=== PATIENT | male | born 1950 | race Caucasian/White ===

== ENCOUNTER 2018-04-06 08:09 | Day surgery (SDC) | payer OTHER ==
--- OUTSIDE RECORDS SUMMARY | 2018-04-06 08:14 | XMS REPORT | Continuity of Care Document ---
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 Medications Medication Details Route Status Patient Ordering Order Source Instructions Provider Date [place] 5325 1 tab, PO, Q6H, Active [facility] 02/24[facility] oral tablet Pain, # 12 tab, [address] [place] [address] 0 Refill(s) [place] 5/325 1 tab, Route: Inactive [facility] 02/24[facility] oral tablet PO, Drug Form: 2014 Medical TAB, Dosing Center Weight 76.364, kg, Q6H, PRN Pain, Start date: 02/24/13 12:41:00, Duration: 30 day, Stop date: 03/26/13 12:40:00(Same as: [place] 325/5) Do not exceed 4gm/day of acetaminophen. diltiazem 300 300 mg=1 cap, Active [facility] 02/24[facility] [place] mg/24 hours PO, Before [facility] Medical oral capsule, Breakfast, # 30 [place] extended cap, 0 Refill(s) release Mononine 3,040 Route: IV, Drug No Longer [facility] 02/24[facility] unit + IV bag 1 form: INJ, Q12H, Active [facility] Medical ea Start date: Center 02/23/13 18:00:00, Stop date: 03/25/13 5:00:00(Same as: Mononine) naloxone 0.04 mg, 0.1 mL, Inactive [place] 02/23[facility] Route: IVP, Drug 2013 Medical form: INJ, Center Q2MIN, Dosing Weight 76.364, kg, PRN Narcotic Reversal, Start date: 02/23/13 9:30:00, Duration: 8 doses or times, Stop date: 02/24/13 0:00:00Same as Narcan flumazenil 0.2 mg, 2 mL, Inactive [place] 02/23[facility] Route: IVP, Drug 2013 Medical form: INJ, PRN, Center Dosing Weight 76.364, kg, PRN Benzodiazepine Reversal, Initial dose, Start date: 02/23/13 9:30:00, Duration: 1 day, Stop date: 02/24/13 9:29:00(Same as: Romazicon) hydromorphone 0.5 mg, Route: Inactive 02/23[facility] IVP, Q5Min, 2013 Medical Dosing Weight Center 76.364, kg, PRN Pain Score 7-10, Start date: 02/23/13 9:30:00, Duration: 4 doses or times, Stop date: Limited # of times promethazine 6.25 mg, 0.25 Inactive [place] 02/23[facility] mL, Route: IVPB, 2013 Medical Drug form: INJ, Center ONCE, Dosing Weight 76.364, kg, PRN Nausea & Vomiting, Start date: 02/23/13 9:30:00Do not give IV push. (Same as: Phenergan) ondansetron 4 mg, 2 mL, Inactive [place] 02/23[facility] Route: IVP, Drug 2013 Medical form: INJ, ONCE, Center Dosing Weight 76.364, kg, PRN Nausea & Vomiting, Start date: 02/23/13 9:30:00(Same as: Zofran) labetalol 10 mg, 2 mL, Inactive [place] 02/23[facility] Route: IVP, Drug 2013 Medical form: INJ, Center Q5Min, Dosing Weight 76.364, kg, PRN Elevated BP, Start date: 02/23/13 9:30:00, Duration: 5 doses or times, Stop date: 02/24/13 0:00:00 hydrALAZINE 10 mg, 0.5 mL, Inactive [place] 02/23[facility] Route: IVP, Drug 2013 Medical form: INJ, Center Q20Min, Dosing Weight 76.364, kg, PRN Elevated BP, Start date: 02/23/13 9:30:00, Duration: 2 doses or times, Stop date: 02/24/13 0:00:00(Same as: Apresoline) Push over 5 minutes Mononine 3,000 unit, Inactive Reynoso Briana Route: IVP, Drug 2013 Medical form: INJ, Q12H, Center Dosing Weight 76.364, kg, Start date: 02/23/13 9:00:00, Duration: 30 day, Stop date: 03/24/13 21:00:00 Mononine 7,775 Route: IV, Drug Inactive Edgardo Briana unit + IV bag 1 form: INJ, ONCE, 2013 Medical ea Start date: Center 02/23/13 6:30:00, Stop date: 02/23/13 6:30:00(Same as: Mononine) ondansetron 4 mg, 2 mL, Inactive Sari Briana Route: IVP, Drug 2013 Medical form: INJ, ONCE, Center Dosing Weight 76.364, kg, PRN Nausea & Vomiting, Start date: 02/22/13 17:29:00(Same as: Zofran) fentanyl 25 microgram, Inactive Sari Briana 0.5 mL, Route: 2013 Medical IVP, Drug form: Center INJ, Q5Min, Dosing Weight 76.364, kg, PRN Pain Score 4-6, Start date: 02/22/13 17:29:00, Duration: 4 doses or times, Stop date: 02/23/13 6:00:00(Same as: Sublimaze) Preservative free. flumazenil 0.2 mg, 2 mL, Inactive Jos éLuisa Briana Route: IVP, Drug 2013 Medical form: INJ, PRN, Center Dosing Weight 76.364, kg, PRN Benzodiazepine Reversal, Initial dose, Start date: 02/22/13 17:29:00, Stop date: 02/23/13 6:00:00(Same as: Romazicon) naloxone 0.04 mg, 0.1 mL, Inactive José Luisa Briana Route: IVP, Drug 2013 Medical form: INJ, Center Q2MIN, Dosing Weight 76.364, kg, PRN Narcotic Reversal, Start date: 02/22/13 17:29:00, Duration: 8 doses or times, Stop date: 02/23/13 6:00:00(Same as: Narcan) Mononine 7,875 Route: IV, Drug No Longer Reynoso [facility] unit + IV bag 1 form: INJ, Active 2013 Medical ea ONCALL, PRN Center Other -See Comment, Start date: 02/21/13 13:14:00, Stop date: 03/23/13 13:13:00prepare using 1125 unit vial x 7 vials (Same as: Mononine) CeleBREX 200 mg, 2 cap, No Longer Osuagwu [facility] Route: PO, Drug Active 2013 Medical form: CAP, Center Daily, Dosing Weight 76.364, kg, PRN Other -See Comment, Start date: 02/21/13 8:54:00, Duration: 30 day, Stop date: 03/23/13 8:53:00, joint painNSAID. Please check indication. Not for seizure. (Same As: CeleBREX ) Mononine 8,000 unit, Inactive [facility] Briana Route: IVP, Drug 2013 Medical form: INJ, Center ONCALL, Dosing Weight 76.364, kg, PRN, Start date: 02/21/13 8:15:00, Duration: 30 day, Stop date: 03/23/13 8:14:00, acute bleeding magnesium 2 gm, 50 mL, Inactive [facility] sulfate Route: IVPB, 2013 Medical Drug form: INJ, Center Q2H, Dosing Weight 76.364, kg, Total dose=4 gm, Start date: 02/21/13 8:00:00, Duration: 2 doses or times, Stop date: 02/21/13 10:00:00 potassium 40 mEq, 30 mL, Inactive [facility] 02/21[facility] [place] chloride 20 Route: PO, Drug 2013 Medical mEq/15 mL oral form: LIQ, ONCE, Center liquid Dosing Weight 76.364, kg, Start date: 02/21/13 7:21:00, Stop date: 02/21/13 7:21:00(Same as: Potassium Chloride) levothyroxine 50 microgram, 1 No Longer Keila [place] tab, Route: PO, Active 2013 Medical Drug form: TAB, Center Q630AM, Dosing Weight 76.364, kg, Start date: 02/21/13 6:30:00, Duration: 30 day, Stop date: 03/22/13 6:30:00Take 1 hour before or 2 hours after meal; Enteral feeds may interefere with the absorption of this medication.(Same as:Levothroid, Synthroid) Protonix 40 mg, 1 tab, No Longer Reynoso [place] Route: PO, Drug Active 2013 Medical form: ECTAB, Center Daily, Dosing Weight 76.364, kg, Start date: 02/20/13 9:00:00, Duration: 30 day, Stop date: 03/21/13 9:00:00Tablet should not be chewed or crushed. (Same as: Protonix) multivitamin 1 tab, Route: No Longer Reynoso [facility] PO, Drug Form: Active 2013 Medical TAB, Dosing Center Weight 76.364, kg, Daily, Start date: 02/20/13 9:00:00, Duration: 30 day, Stop date: 03/21/13 9:00:00(Same as:Thera) Take with food. Flomax 0.4 mg, 1 cap, No Longer Reynoso [place] Route: PO, Drug Active 2013 Medical form: CAP, After Center Breakfast, Dosing Weight 76.364, kg, Start date: 02/20/13 8:30:00, Duration: 30 day, Stop date: 03/21/13 8:30:00(Same As: Flomax) "Do Not Crush" levothyroxine 40 microgram, Inactive [facility] [place] 1.6 mL, Route: 2013 Medical PO, Drug form: Center SUSP, Q630AM, Dosing Weight 76.364, kg, Start date: 02/20/13 8:23:00, Duration: 30 day, Stop date: 03/22/13 6:30:00Enteral feeds may interefere with the absorption of this medication. Take 1 hour before or 2 hours after meal; Refrigerate - Shake Well (Same as: Synthroid) Compounded Product - formulation not commercially available diltiazem 300 mg, 1 cap, No Longer Reynoso [place] Route: PO, Drug Active 2013 Medical form: ERCAP, Center Before Breakfast, Dosing Weight 76.364, kg, Start date: 02/20/13 7:30:00, Duration: 30 day, Stop date: 03/21/13 7:30:00(Same as: Cardizem CD) Before meals. DO NOT CRUSH. levothyroxine 150 microgram, 1 Inactive [facility] [place] tab, Route: PO, 2013 Medical Drug form: TAB, Center Q630AM, Dosing Weight 76.364, kg, Start date: 02/20/13 6:30:00, Duration: 30 day, Stop date: 03/21/13 6:30:00Take 1 hour before or 2 hours after meal; Enteral feeds may interefere with the absorption of this medication. (Same as: Levothroid) Zosyn 3.375 gm, Route: No Longer Zwiener [facility] IVPB, Drug form: Active 2013 Medical PDR/INJ, ABXQ6H, Center Dosing Weight 76.364, kg, Start date: 02/20/13 2:30:00, Duration: 30 day, Stop date: 03/21/13 20:30:00(Same as: Zosyn) Dosing based on Piperacillin component acetaminophen 650 mg, 20.3 mL, No Longer Reynoso [facility] Route: PO, Drug Active 2013 Medical form: LIQ, Q4H, Center Dosing Weight 76.364, kg, PRN Pain 1-3/Temp > 100.4 F, Start date: 02/19/13 20:39:00, Duration: 30 day, Stop date: 03/21/13 20:38:00Max acetaminophen=40 00mg/day (4 gm/day). (Same as: Tylenol) Zosyn 3.375 gm, Route: Inactive [facility] IVPB, Drug form: 2013 Medical PDR/INJ, ABXQ8H, Center Dosing Weight 76.364, kg, CrCl >=20 ml/min infuse over 4 hours, Start date: 02/19/13 19:00:00, Duration: 30 day, Stop date: 03/21/13 11:00:00 normal saline 1,000 mL, Rate: No Longer Zwiener [place] 0.9% IV 1,000 100 ml/hr, Active 2013 Medical mL Infuse over: 10 Center hr, Route: IV, Dosing Weight 76.364 kg, Total Volume: 1,000, Start date: 02/19/13 18:18:00, Duration: 30 day, Stop date: 03/21/13 18:17:00 multivitamin 1 tab, PO, Active Reynoso [facility] Daily, 0 2013 Medical Refill(s) Center CeleBREX 200 mg 200 mg=1 cap, Active [facility] oral capsule PO, PRN, # 30 2013 Medical cap, 0 Refill(s) Center Flomax 0.4 mg, PO, Active Reynoso [facility] Daily, 0 2013 Medical Refill(s) Center levothyroxine =1 tab, PO, Active Reynoso [facility] Daily, 0 2013 Medical Refill(s) Center Protonix 40 mg, PO, Active Reynoso [facility] Daily, # 30 tab, 2014 Medical 0 Refill(s) Center Cardizem CD 360 360 mg=1 cap, No Longer [facility] mg/24 hours PO, Daily, # 30 Active 2013 Medical oral capsule, cap, 0 Refill(s) Center extended release Allergies, Adverse Reactions, Alerts Substance Category Reaction Severity Reaction Status Date Comments Source type Reported Medrol drug , Alt Hot Allergy [facility] allergy & Cold 4 [place] Immunizations Immunization Date Given Site Status Last Updated Comments Source Results Order Name Results Value Reference Date Interpretation Comments Source Range Bone length Bone length EXAM: LIMB LENGTH SCANOGRAM 1 VIEW 03/29 - [facility] scanogram scanogram /2013 - [place] DATA: PRE - JOINT REPLACEMENT FULL LENGTH LOWER LIMB ASSESSMENT Read by: Waylon Goodwin Dictated Date/time: 03/30/13 09:14 Electronically Signed by: Waylon Goodwin MD 03/30/13 09:16 FINAL REPORT DATE: Order Observation End Time: Mar 29, 2013 05:35:55 PM INDICATION: 715.16 Osteoarthrosis, Localized, Primary, Involving Lower Leg . Pain .. COMPARISON: None TECHNIQUE: Full length weight bearing AP radiographic examination of bilateral lower limbs , from hips to ankles. FINDINGS: Distance of weight bearing axis ( measured from center of femoral head to midpoint of tibial plafond) to the center of knee joint : Right knee=0.0 cms Left knee=0.0 cms. Genu angulation : RIGHT KNEE Varus=0 degrees. LEFT KNEE Varus=0 degrees Left total knee arthroplasty is present. 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 IMPRESSION: Full length imaging of the lower limbs with measurements as listed above. Knee 3 Knee 3 views EXAM: XR LEFT KNEE 3 VIEWS 03/29 - [facility] views /2013 - [place] This report was dictated by a Credit Reference Clerk/Fellow. I have personally reviewed the images as well as the Resident's interpretation and agree with the findings. DATE: 2013-03-29 17:35:00 Read by: Bib Chaparro Resident: Bib Chaparro Dictated Date/time: 03/30/13 09:35 Electronically Signed by: Waylon Goodwin MD 03/30/13 21:59 FINAL REPORT INDICATION: 715.16 Osteoarthrosis, Localized, Primary, Involving Lower Leg COMPARISON: left knee radiographs from 01/16/2010 TECHNIQUE: AP, lateral and sunrise radiographs of the left knee FINDINGS: The patient is status post left total knee arthroplasty and patellar resurfacing. The knee projects in satisfactory alignment on all views. There is minimal perihardware lucency around the tib ial stem without definite evidence of failure. No soft tissue abnormality is identified. IMPRESSION: Satisfactory alignment following left total knee arthroplasty. CHEMISTRY Phosphorus 2.4 mg/dL 2.5 - 4.5 02/24 LOW [facility] CHEMISTRY Magnesium Lvl 1.8 mg/dL 1.8 - 2.4 02/24 Normal [facility] CHEMISTRY Sodium Lvl 141 meq/L 135 - 145 02/24 Normal [facility] CHEMISTRY Creatinine 0.9 mg/dL 0.5 - 1.4 02/24 Normal [facility] CHEMISTRY BUN 10 mg/dL 7 - 22 02/24 Normal [facility] CHEMISTRY Glucose Lvl 106 mg/dL 70 - 99 02/24 [place] 5Interpretive Data: Adult reference range values reflect the clinical guidelines of the [place] [employer]. [facility] CHEMISTRY eGFR 90 02/24 2Result Comment: The eGFR is calculated using the CKD-EPI formula. In most young, healthy individuals the eGFR will be >90 mL/ min/1.73m2. The eGFR declines with age. An eGFR of 60-89 may be normal in [facility] mL/min/1. some populations, particularly the elderly, for whom the CKD-EPI formula has not been extensively validated. Use of the eGFR is not recommended in the following populations: [address] Individuals with unstable creatinine concentrations, including patients and those with serious co-morbid conditions. Patients with extremes in muscle mass or diet. The data above are obtained from the National Kidney Disease Education Program (NKDEP) which additionally recommends that when the eGFR is used in patients with extremes of body mass index for purposes of drug dosing, the eGFR should be multiplied by the estimated BMI. CHEMISTRY CO2 28 meq/L 24 - 32 02/24 Normal [facility] CHEMISTRY Chloride Lvl 105 meq/L 95 - 109 02/24 Normal [facility] CHEMISTRY Potassium Lvl 3.7 meq/L 3.5 - 5.1 02/24 Normal [facility] CHEMISTRY Calcium Lvl 8.6 mg/dL 8.5 - 10.5 02/24 Normal [facility] CHEMISTRY AGAP 11.7 meq/L 10.0 - 02/24 [facility] 20.0 [facility] HEMATOLOGY RBC X 10x6 4.63 M/CMM 4.70 - 02/24 [facility] 6.10 [facility] HEMATOLOGY Hgb 13.3 g/dL 14.0 - 02/24 [facility] 18.0 [facility] HEMATOLOGY Hct 39.6 % 42.0 - 02/24 [facility] 54.0 /2013 [facility] HEMATOLOGY WBC X 10x3 13.8 K/CMM 3.7 - 10.4 02/24 [facility] HEMATOLOGY MCHC 33.6 g/dL 32.0 - 02/24 [facility] 36.0 [facility] HEMATOLOGY MCH 28.7 pg 27.0 - 02/24 [facility] 31.0 [facility] HEMATOLOGY Platelet 171 K/CMM 133 - 450 02/24 Normal [facility] HEMATOLOGY RDW 13.1 % 11.5 - 01/15 [facility] 14.5 [facility] HEMATOLOGY MCV 85.5 fL 80.0 - 02/24 Normal [facility] 94.0 /2013 [facility] HEMATOLOGY MPV 9.0 fL 7.4 - 10.4 02/24 Normal [facility] HEMATOLOGY Segs-Bands # 11.7 K/CMM 1.5 - 8.1 02/24 [place] [facility] HEMATOLOGY Eosinophils 0.2 % 0.0 - 4.0 02/24 Normal [facility] HEMATOLOGY Basophils 0.2 % 0.0 - 1.0 02/24 Normal [facility] HEMATOLOGY Monocytes # 1.0 K/CMM 0.0 - 0.8 02/24 [place] [facility] HEMATOLOGY Lymphocytes # 1.1 K/CMM 1.0 - 5.5 02/24 Normal [facility] HEMATOLOGY Lymphocytes 8.2 % 20.0 - 02/24 LOW [place] 40.0 [facility] HEMATOLOGY Segs 84.4 % 45.0 - 02/24 [facility] 75.0 [facility] HEMATOLOGY Monocytes 7.0 % 2.0 - 12.0 02/24 Normal [facility] CHEMISTRY A/G Ratio 1.0 0.7 - 1.6 02/23 Normal [facility] CHEMISTRY AGAP 15.5 meq/L 10.0 - 02/23 Normal [facility] 20.0 [facility] CHEMISTRY B/C Ratio 13 6 - 25 02/23 Normal [facility] CHEMISTRY Globulin 3.4 g/dL 2.0 - 4.0 02/23 Normal [facility] CHEMISTRY eGFR 79 02/23 3Result Comment: The eGFR is calculated using the CKD-EPI formula. In most young, healthy individuals the eGFR will be >90 mL/ min/1.73m2. The eGFR declines with age. An eGFR of 60-89 may be normal in [facility] mL/min/1. some populations, particularly the elderly, for whom the CKD-EPI formula has not been extensively validated. Use of the eGFR is not recommended in the following populations: Medical [facility] Individuals with unstable creatinine concentrations, including patients and those with serious co-morbid conditions. Patients with extremes in muscle mass or diet. The data above are obtained from the National Kidney Disease Education Program (NKDEP) which additionally recommends that when the eGFR is used in patients with extremes of body mass index for purposes of drug dosing, the eGFR should be multiplied by the estimated BMI. CHEMISTRY Total Protein 6.7 g/dL 6.4 - 8.4 02/23 Normal [facility] CHEMISTRY ASPARTATE 161 unit/L 0 - 37 02/23 [facility] CHEMISTRY Chloride Lvl 106 meq/L 95 - 109 02/23 Normal Medical [facility] CHEMISTRY CO2 23 meq/L 24 - 32 02/23 [facility] CHEMISTRY Calcium Lvl 8.5 mg/dL 8.5 - 10.5 02/23 Normal [facility] CHEMISTRY Bili Total 1.5 mg/dL 0.2 - 1.3 02/23 [facility] CHEMISTRY Alk Phos 119 unit/L 39 - 136 02/23 Normal [facility] CHEMISTRY Creatinine 1.0 mg/dL 0.5 - 1.4 02/23 Normal [facility] CHEMISTRY Sodium Lvl 141 meq/L 135 - 145 02/23 Normal Medical Center CHEMISTRY Potassium Lvl 3.5 meq/L 3.5 - 5.1 02/23 Normal [facility] Center CHEMISTRY BUN 13 mg/dL 7 - 22 02/23 Normal [facility] Center CHEMISTRY Glucose Lvl 114 mg/dL 70 - 99 02/23 [place] 6Interpretive Data: Adult reference range values reflect the clinical guidelines of the [place] [employer]. Medical Center CHEMISTRY Albumin Lvl 3.3 g/dL 3.5 - 5.0 02/23 LOW [facility] CHEMISTRY ALANINE 240 unit/L 0 - 65 02/23 [facility] AMINOTRANSFER [facility] Center CHEMISTRY Magnesium Lvl 1.8 mg/dL 1.8 - 2.4 02/23 Normal [facility] Center CHEMISTRY Phosphorus 3.2 mg/dL 2.5 - 4.5 02/23 Normal [facility] HEMATOLOGY MCV 85.3 fL 80.0 - 02/23 [facility] 94.0 [facility] HEMATOLOGY RDW 13.5 % 11.5 - 02/23 [facility] 14.5 Medical [place] HEMATOLOGY RBC X 10x6 4.54 M/CMM 4.70 - 02/23 [facility] 6.10 [facility] HEMATOLOGY MCHC 34.8 g/dL 32.0 - 02/23 Normal [facility] 36.0 /2013 [facility] HEMATOLOGY Hct 38.7 % 42.0 - 02/23 [facility] 54.0 /2013 [facility] HEMATOLOGY MCH 29.7 pg 27.0 - 02/23 Normal [facility] 31.0 /2013 [facility] HEMATOLOGY Hgb 13.5 g/dL 14.0 - 02/23 LOW [facility] 18.0 [facility] HEMATOLOGY Platelet 188 K/CMM 133 - 450 02/23 Normal [facility] HEMATOLOGY MPV 8.9 fL 7.4 - 10.4 02/23 Normal [facility] HEMATOLOGY WBC X 10x3 8.1 K/CMM 3.7 - 10.4 02/23 Normal [facility] HEMATOLOGY Lymphocytes # 1.2 K/CMM 1.0 - 5.5 02/23 Normal [facility] HEMATOLOGY Monocytes # 0.8 K/CMM 0.0 - 0.8 02/23 Normal [facility] HEMATOLOGY Segs-Bands # 5.9 K/CMM 1.5 - 8.1 02/23 Normal [facility] HEMATOLOGY Eosinophils 1.5 % 0.0 - 4.0 02/23 Normal [facility] HEMATOLOGY Basophils 0.4 % 0.0 - 1.0 02/23 Normal [facility] HEMATOLOGY Eosinophils # 0.1 K/CMM 0.0 - 0.5 02/23 Normal [facility] HEMATOLOGY Lymphocytes 14.8 % 20.0 - 02/23 LOW [facility] 40.0 [facility] HEMATOLOGY Monocytes 9.6 % 2.0 - 12.0 02/23 Normal [facility] HEMATOLOGY Segs 73.7 % 45.0 - 02/23 [facility] 75.0 [facility] Endoscopic Endoscopic EXAM: Endoscopic Retro Pancreatogram ERCP 02/22 - [facility] Retro /2013 - [facility] Pancreatogr Pancreatogram Center am ERCP ERCP DATE: Feb 22, 2013 04:17:00 PM. Read by: Vikki Castro Dictated Date/time: 02/23/13 09:01 Electronically Signed by: Vikki Castro MD 02/23/13 09:07 FINAL REPORT CLINICAL INDICATION: stones in the bile duct COMPARISON: Right upper quadrant ultrasound dated 02/19/2013 FINDINGS: On the c.o.d. clerk radiograph there is an elongated calcific density along the medial aspect the expected location of common bile duct. On the subsequent ERCP images, there has been opacification of the extra hepatic and intrahepatic bile ducts obscuring the visualization of this calcific density. There is mild to moderate extrahepatic and central intrahepatic biliary dilation. As per the ERCP note, a sphinc terotomy has been performed and stones were removed from the bile duct with a balloon catheter. On the final radiograph subsequent removal of the stones and endoscope, residual contrast in the biliary system does not demonstrate significant dilation. As per the ERCP note, fluoroscopy time is 6.2 minutes. IMPRESSION: 1. Fluoroscopic guidance provided for ERCP. 2. Mild to moderate extrahepatic and central intrahepatic biliary ductal dilation. Calcific density seen on the c.o.d. clerk radiograph is not appreciated on the subsequent images. As per the ERCP note, sphinc terotomy has been performed and calculi were removed from the bile duct with a balloon catheter. CHEMISTRY eGFR 79 02/22 4Result Comment: The eGFR is calculated using the CKD-EPI formula. In most young, healthy individuals the eGFR will be >90 mL/ min/1.73m2. The eGFR declines with age. An eGFR of 60-89 may be normal in [facility] mL/min/1. some populations, particularly the elderly, for whom the CKD-EPI formula has not been extensively validated. Use of the eGFR is not recommended in the following populations: Medical [facility] Individuals with unstable creatinine concentrations, including patients and those with serious co-morbid conditions. Patients with extremes in muscle mass or diet. The data above are obtained from the National Kidney Disease Education Program (NKDEP) which additionally recommends that when the eGFR is used in patients with extremes of body mass index for purposes of drug dosing, the eGFR should be multiplied by the estimated BMI. CHEMISTRY CO2 24 meq/L 24 - 32 02/22 Normal [facility] CHEMISTRY Calcium Lvl 8.5 mg/dL 8.5 - 10.5 02/22 Normal [facility] CHEMISTRY Chloride Lvl 108 meq/L 95 - 109 02/22 Normal [facility] CHEMISTRY Bili Total 1.6 mg/dL 0.2 - 1.3 02/22 [place] [facility] CHEMISTRY ASPARTATE 71 unit/L 0 - 37 02/22 [place] Medical [place] CHEMISTRY Total Protein 6.7 g/dL 6.4 - 8.4 02/22 Normal [facility] CHEMISTRY Albumin Lvl 3.4 g/dL 3.5 - 5.0 02/22 LOW [facility] CHEMISTRY ALANINE 142 unit/L 0 - 65 02/22 HI AMINO [facility] Center CHEMISTRY Glucose Lvl 91 mg/dL 70 - 99 02/22 Normal 7Interpretive Data: Adult reference range values reflect the clinical guidelines of the [place] [employer]. [facility] CHEMISTRY Alk Phos 118 unit/L 39 - 136 02/22 Normal [facility] CHEMISTRY BUN 15 mg/dL 7 - 22 02/22 Normal [facility] CHEMISTRY Creatinine 1.0 mg/dL 0.5 - 1.4 02/22 Normal [facility] CHEMISTRY Potassium Lvl 3.7 meq/L 3.5 - 5.1 02/22 Normal [facility] CHEMISTRY Sodium Lvl 142 meq/L 135 - 145 02/22 Normal [facility] CHEMISTRY AGAP 13.7 meq/L 10.0 - 02/22 Normal 20.0 [facility] CHEMISTRY B/C Ratio 15 6 - 25 02/22 Normal [facility] CHEMISTRY Globulin 3.3 g/dL 2.0 - 4.0 02/22 Normal [facility] CHEMISTRY A/G Ratio 1.0 0.7 - 1.6 02/22 Normal [facility] CHEMISTRY Magnesium Lvl 2.0 mg/dL 1.8 - 2.4 02/22 Normal [facility] CHEMISTRY Phosphorus 3.5 mg/dL 2.5 - 4.5 02/22 Normal [facility] HEMATOLOGY Eosinophils # 0.4 K/CMM 0.0 - 0.5 02/22 Normal [facility] HEMATOLOGY Monocytes # 0.5 K/CMM 0.0 - 0.8 02/22 Normal [facility] HEMATOLOGY Lymphocytes # 1.1 K/CMM 1.0 - 5.5 02/22 Normal [facility] HEMATOLOGY Segs-Bands # 3.0 K/CMM 1.5 - 8.1 02/22 Normal [facility] Center HEMATOLOGY Monocytes 10.7 % 2.0 - 12.0 02/22 Normal [facility] HEMATOLOGY Segs 59.4 % 45.0 - 02/22 Normal [place] 75.0 /2013 [facility] HEMATOLOGY Eosinophils 7.6 % 0.0 - 4.0 02/22 [facility] HEMATOLOGY Lymphocytes 21.7 % 20.0 - 02/22 Normal [place] 40.0 Medical Center HEMATOLOGY Basophils 0.6 % 0.0 - 1.0 02/22 Normal [facility] HEMATOLOGY Hgb 13.8 g/dL 14.0 - 02/22 LOW [place] 18.0 /2013 [facility] Center HEMATOLOGY RBC X 10x6 4.79 M/CMM 4.70 - 02/22 Normal [facility] 6.10 Medical [place] HEMATOLOGY Hct 41.2 % 42.0 - 02/22 LOW [place] 54.0 /2013 Medical Center HEMATOLOGY WBC X 10x3 5.0 K/CMM 3.7 - 10.4 02/22 Normal [facility] HEMATOLOGY Platelet 168 K/CMM 133 - 450 02/22 Normal [facility] Center HEMATOLOGY RDW 13.4 % 11.5 - 02/22 Normal [facility] 14.5 Medical Center HEMATOLOGY MPV 9.1 fL 7.4 - 10.4 02/22 Normal [facility] HEMATOLOGY MCH 28.8 pg 27.0 - 02/22 Normal [facility] 31.0 Medical Center HEMATOLOGY MCV 85.9 fL 80.0 - 02/22 Normal [facility] 94.0 Medical Center HEMATOLOGY MCHC 33.5 g/dL 32.0 - 02/22 Normal [facility] 36.0 [facility] Center CHEMISTRY Total Protein 6.3 g/dL 6.4 - 8.4 02/21 LOW [facility] CHEMISTRY Bili Total 1.8 mg/dL 0.2 - 1.3 02/21 [facility] CHEMISTRY A/G Ratio 1.0 0.7 - 1.6 02/21 Normal [facility] CHEMISTRY ASPARTATE 56 unit/L 0 - 37 02/21 [facility] Center CHEMISTRY B/C Ratio 16 6 - 25 02/21 Normal [facility] Center CHEMISTRY Globulin 3.2 g/dL 2.0 - 4.0 02/21 Normal [facility] Center CHEMISTRY Albumin Lvl 3.1 g/dL 3.5 - 5.0 02/21 LOW [facility] CHEMISTRY Alk Phos 119 unit/L 39 - 136 02/21 Normal [facility] CHEMISTRY ALANINE 135 unit/L 0 - 65 02/21 [facility] AMINOTRANSFER Medical [facility] Center HEMATOLOGY Eosinophils # 0.3 K/CMM 0.0 - 0.5 02/21 Normal [facility] HEMATOLOGY Plt Morph Normal 02/20 Normal [facility] (02/20/2013 05:17:00) Center HEMATOLOGY RBC Morph Normal 02/20 Normal [facility] (02/20/2013 05:17:00) Center URINALYSIS UA Leuk Est Negative Negative 02/19 Normal [facility] (02/19/2013 11:45:20) [place] URINALYSIS UA Turbidity Clear Clear 02/19 Normal [facility] (02/19/2013 11:45:20) [place] URINALYSIS UA pH 6.5 5.0 - 8.0 02/19 Normal [facility] URINALYSIS UA Spec Grav 1.010 <=1.030 02/19 Normal [facility] URINALYSIS UA Protein 30 mg/dL Negative 02/19 ABN [facility] URINALYSIS UA Glucose Negative Negative 02/19 Normal [facility] (02/19/2013 11:45:20) [place] URINALYSIS UA Blood Negative Negative 02/19 [facility] (02/19/2013 11:45:20) [place] URINALYSIS UA 4.0 EU/dL 0.1 - 1.0 02/19 [facility] Urobilinogen /2013 [facility] URINALYSIS UA Nitrite Negative Negative 02/19 Normal [facility] (02/19/2013 11:45:20) Center URINALYSIS UA Ketones Trace Negative 02/19 ABN Medical *ABN* [place] (02/19/2013 11:45:20) URINALYSIS UA Bili Moderate 1 Negative 02/19 [facility] 1Result Comment: Interpret positive bilirubin results with caution. Confirmatory testing not possible due to the unavailability of reagent. Correlation with Medical *ABN* serum chemistry results recommended. Center (02/19/2013 11:45:20) URINALYSIS UA Color Yellow Yellow 02/19 Medical *NA* Center (02/19/2013 11:45:20) URINALYSIS UA Bacteria None Seen None Seen 02/19 Normal [facility] (02/19/2013 11:45:20) [place] URINALYSIS UA RBC None Seen 0 - 2 02/19 Normal [facility] (02/19/2013 11:45:20) [place] URINALYSIS Micro? Performed 02/19 Normal [facility] (02/19/2013 11:45:20) [place] URINALYSIS UA WBC None Seen None Seen 02/19 Normal [facility] (02/19/2013 11:45:20) [place] URINALYSIS UA Sq Epi Occasional Few 02/19 Normal / [facility] BLOOD BANK Antibody Scrn Negative 02/19 Normal [facility] (02/19/2013 11:45:00) [place] BLOOD BANK ABO/Rh B POS 02/19 [facility] CHEMISTRY Lipase Lvl 202 unit/L 73 - 393 02/19 Normal [facility] HEMATOLOGY Basophils # 0.1 K/CMM 0.0 - 0.2 02/19 Normal [facility] HEMATOLOGY Large Plt Slight None Seen 02/19 ABN [facility] *ABN* [place] (02/19/2013 11:45:00) HEMATOLOGY RBC Morph Normal 02/19 Normal [facility] (02/19/2013 11:45:00) [place] Abdomen RUQ Abdomen RUQ EXAM: US ABDOMEN LIMITED 02/19 - [facility] US - [facility] This report was dictated by a Credit Reference Clerk/Fellow. I have personally reviewed the images as Center well as the Resident's interpretation and agree with the findings. DATE: 02/19/2013 at 1159. Read by: Dulce Hemphill Resident: Dulce Hemphill Dictated Date/time: 02/19/13 13:26 Electronically Signed by: Francy James MD 02/19/13 16:35 FINAL REPORT INDICATION: Right upper quadrant pain COMPARISON: Liver ultrasound 09/04/2007. TECHNIQUE: Multiplanar grayscale and color Doppler ultrasound images of the RUQ abdomen were obtained. FINDINGS: Liver demonstrates coarse echogenicity without masses. Right hepatic lobe measures 16 cm at the midclavicular line. Main portal vein is 12 mm in diameter with hepatopetal flow. The gallbladder contains a single nonmobile calculus within the fundus as well as a small amount of sludge. Gallbladder wall thickness is 2.4 mm. No sonographic Gordon's sign or pericholecystic fluid. Visualized portions of the intrahepatic biliary tree are of normal caliber. Common duct is mildly enlarged, measuring 7.5 liters in diameter at the head of the pancreas and up to 12 mm at the hilum. Pancreas is unremarkable where visualized. The spleen measures 10.7 x 3.3 x 3.8 cm. Right kidney is normal in size, shape, and echotexture without masses or hydronephrosis. Right kidney measures 13.6 x 4.9 x 6.5 cm. Abdominal aorta is of normal caliber. Inferior vena cava unremarkable where visualized. No free fluid identified. IMPRESSION: 1. Dilated common bile duct, measuring approximately 7.5 mm at the head of the pancreas and up to 12 mm at the hilum. Recommend correlation with LFTs and possible MRCP for further evaluation. 2. Mildly heterogeneous echogenicity of the liver, which is otherwise unremarkable. 3. Nonmobile calculus within the gallbladder fundus without evidence of cholecystitis. Vital Signs Vital Sign Value Date Comments Source Diastolic (mm Hg) 77 02/24/2013 [facility] Systolic (mm Hg) 162 02/24/2013 [facility] Respitory Rate 16 02/24/2013 [facility] Heart Rate 63 02/24/2013 [facility] Temperature Oral (F) 98.8 F 02/24/2013 [facility] Diastolic (mm Hg) 82 02/24/2013 [facility] Systolic (mm Hg) 155 02/24/2013 [facility] Temperature Oral (F) 98.1 F 02/24/2013 [facility] Heart Rate 66 02/24/2013 [facility] Respitory Rate 16 02/24/2013 [facility] Respitory Rate 16 02/24/2013 [facility] Heart Rate 60 02/24/2013 [facility] Temperature Oral (F) 98.4 F 02/24/2013 [facility] Systolic (mm Hg) 122 02/24/2013 [facility] Diastolic (mm Hg) 64 02/24/2013 [facility] Weight 76.364 02/20/2013 [facility] Height 182.88 cm 02/20/2013 [facility] Weight 76.364 02/19/2013 [facility] Encounters Location Location Encounter Encounter Reason Attending ADM DC Status Source Details Type Number For Provider Date Date Visit [facility] Inpatient [id number] DELFINO HALLMAN 02/19 02/24 Active [facility] /2013 [facility] OD [id number] 715.16 MONA 03/29 03/29 Active [facility] /2013 [place] PRIM OSTEOA Procedures Procedure Code Date Perfomer Comments Source Knee replacement [id number] [facility]
--- OUTSIDE RECORDS SUMMARY | 2018-04-06 08:15 | XMS REPORT | CCD ---
:1950 Author Organization [facility] Care Team Providers Name Role Phone Enrique Colvin [place] Consulting Provider Allergies, Adverse Reactions, Alerts Substance Reaction Status Medrol Dizziness Active Alt Hot & Cold Problem List Condition Effective Dates Status Hemophilia Resolved Hepatitis C Resolved HTN - Hypertension Resolved Pain Active Medications Medication Instructions Start Date End Date Status naloxone 0.04 mg, 0.1 mL, Route: 02/23/2013 02/23/2013 Discontinued IVP, Drug form: INJ, Q2MIN, Dosing Weight 76.364, kg, PRN Narcotic Reversal, Start date: 02/23/13 9:30:00, Duration: 8 doses or times, Stop date: 02/24/13 0:00:00Same as Narcan flumazenil 0.2 mg, 2 mL, Route: IVP, 02/23/2013 02/23/2013 Discontinued Drug form: INJ, PRN, Dosing Weight 76.364, kg, PRN Benzodiazepine Reversal, Initial dose, Start date: 02/23/13 9:30:00, Duration: 1 day, Stop date: 02/24/13 9:29:00(Same as: Romazicon) hydromorphone 0.5 mg, Route: IVP, 02/23/2013 02/23/2013 Completed Q5Min, Dosing Weight 76.364, kg, PRN Pain Score 7-10, Start date: 02/23/13 9:30:00, Duration: 4 doses or times, Stop date: Limited # of times promethazine 6.25 mg, 0.25 mL, Route: 02/23/2013 02/23/2013 Discontinued IVPB, Drug form: INJ, ONCE, Dosing Weight 76.364, kg, PRN Nausea & Vomiting, Start date: 02/23/13 9:30:00Do not give IV push. (Same as: Phenergan) ondansetron 4 mg, 2 mL, Route: IVP, 02/23/2013 02/23/2013 Discontinued Drug form: INJ, ONCE, Dosing Weight 76.364, kg, PRN Nausea & Vomiting, Start date: 02/23/13 9:30:00(Same as: Zofran) labetalol 10 mg, 2 mL, Route: IVP, 02/23/2013 02/23/2013 Discontinued Drug form: INJ, Q5Min, Dosing Weight 76.364, kg, PRN Elevated BP, Start date: 02/23/13 9:30:00, Duration: 5 doses or times, Stop date: 02/24/13 0:00:00 hydrALAZINE 10 mg, 0.5 mL, Route: 02/23/2013 02/23/2013 Discontinued IVP, Drug form: INJ, Q20Min, Dosing Weight 76.364, kg, PRN Elevated BP, Start date: 02/23/13 9:30:00, Duration: 2 doses or times, Stop date: 02/24/13 0:00:00(Same as: Apresoline)Push over 5 minutes Flomax 0.4 mg, 1 cap, Route: PO, 02/20/2013 02/24/2013 Discontinued Drug form: CAP, After Breakfast, Dosing Weight 76.364, kg, Start date: 02/20/13 8:30:00, Duration: 30 day, Stop date: 03/21/13 8:30:00(Same As: Flomax) "Do Not Crush" Protonix 40 mg, 1 tab, Route: PO, 02/20/2013 02/24/2013 Discontinued Drug form: ECTAB, Daily, Dosing Weight 76.364, kg, Start date: 02/20/13 9:00:00, Duration: 30 day, Stop date: 03/21/13 9:00:00Tablet should not be chewed or crushed.(Same as: Protonix) multivitamin 1 tab, Route: PO, Drug 02/20/2013 02/24/2013 Discontinued Form: TAB, Dosing Weight 76.364, kg, Daily, Start date: 02/20/13 9:00:00, Duration: 30 day, Stop date: 03/21/13 9:00:00(Same as:Thera) Take with food. levothyroxine =1 tab, PO, Daily, 0 02/19/2013 Ordered Refill(s) Protonix 40 mg, PO, Daily, # 30 02/19/2013 03/21/2013 Ordered tab, 0 Refill(s) Canby 5/325 oral tablet 1 tab, PO, Q6H, Pain, # 02/24/2013 Ordered 12 tab, 0 Refill(s) Cardizem CD 360 mg/24 360 mg=1 cap, PO, Daily, 02/19/2013 02/24/2013 Discontinued hours oral capsule, # 30 cap, 0 Refill(s) extended release Canby 5/325 oral tablet 1 tab, Route: PO, Drug 02/24/2013 02/24/2013 Discontinued Form: TAB, Dosing Weight 76.364, kg, Q6H, PRN Pain, Start date: 02/24/13 12:41:00, Duration: 30 day, Stop date: 03/26/13 12:40:00(Same as: Canby 325/5) Do not exceed 4gm/day of acetaminophen. Zosyn 3.375 gm, Route: IVPB, 02/19/2013 02/19/2013 Discontinued Drug form: PDR/INJ, ABXQ8H, Dosing Weight 76.364, kg, CrCl >=20 ml/min infuse over 4 hours, Start date: 02/19/13 19:00:00, Duration: 30 day, Stop date: 03/21/13 11:00:00 Mononine 8,000 unit, Route: IVP, 02/21/2013 02/21/2013 Deleted Drug form: INJ, ONCALL, Dosing Weight 76.364, kg, PRN, Start date: 02/21/13 8:15:00, Duration: 30 day, Stop date: 03/23/13 8:14:00, acute bleeding Mononine 3,040 unit + IV Route: IV, Drug form: 02/23/2013 02/24/2013 Discontinued bag 1 ea INJ, Q12H, Start date: 02/23/13 18:00:00, Stop date: 03/25/13 5:00:00(Same as: Mononine) levothyroxine 150 microgram, 1 tab, 02/20/2013 02/20/2013 Discontinued Route: PO, Drug form: TAB, Q630AM, Dosing Weight 76.364, kg, Start date: 02/20/13 6:30:00, Duration: 30 day, Stop date: 03/21/13 6:30:00Take 1 hour before or 2 hours after meal; Enteral feeds may interefere with the absorption of this medication. (Same as: Levothroid) diltiazem 300 mg, 1 cap, Route: PO, 02/20/2013 02/24/2013 Discontinued Drug form: ERCAP, Before Breakfast, Dosing Weight 76.364, kg, Start date: 02/20/13 7:30:00, Duration: 30 day, Stop date: 03/21/13 7:30:00(Same as: Cardizem CD) Before meals. DO NOT CRUSH. ondansetron 4 mg, 2 mL, Route: IVP, 02/22/2013 02/22/2013 Discontinued Drug form: INJ, ONCE, Dosing Weight 76.364, kg, PRN Nausea & Vomiting, Start date: 02/22/13 17:29:00(Same as: Zofran) fentanyl 25 microgram, 0.5 mL, 02/22/2013 02/22/2013 Discontinued Route: IVP, Drug form: INJ, Q5Min, Dosing Weight 76.364, kg, PRN Pain Score 4-6, Start date: 02/22/13 17:29:00, Duration: 4 doses or times, Stop date: 02/23/13 6:00:00(Same as: Sublimaze) Preservative free. flumazenil 0.2 mg, 2 mL, Route: IVP, 02/22/2013 02/22/2013 Discontinued Drug form: INJ, PRN, Dosing Weight 76.364, kg, PRN Benzodiazepine Reversal, Initial dose, Start date: 02/22/13 17:29:00, Stop date: 02/23/13 6:00:00(Same as: Romazicon) naloxone 0.04 mg, 0.1 mL, Route: 02/22/2013 02/22/2013 Discontinued IVP, Drug form: INJ, Q2MIN, Dosing Weight 76.364, kg, PRN Narcotic Reversal, Start date: 02/22/13 17:29:00, Duration: 8 doses or times, Stop date: 02/23/13 6:00:00(Same as: Narcan) levothyroxine 50 microgram, 1 tab, 02/21/2013 02/24/2013 Discontinued Route: PO, Drug form: TAB, Q630AM, Dosing Weight 76.364, kg, Start date: 02/21/13 6:30:00, Duration: 30 day, Stop date: 03/22/13 6:30:00Take 1 hour before or 2 hours after meal; Enteral feeds may interefere with the absorption of this medication.(Same as:Levothroid, Synthroid) Mononine 7,875 unit + IV Route: IV, Drug form: 02/21/2013 02/23/2013 Discontinued bag 1 ea INJ, ONCALL, PRN Other -See Comment, Start date: 02/21/13 13:14:00, Stop date: 03/23/13 13:13:00prepare using 1125 unit vial x 7 vials(Same as: Mononine) diltiazem 300 mg/24 hours 300 mg=1 cap, PO, Before 02/24/2013 Ordered oral capsule, extended Breakfast, # 30 cap, 0 release Refill(s) Mononine 7,775 unit + IV Route: IV, Drug form: 02/23/2013 02/23/2013 Completed bag 1 ea INJ, ONCE, Start date: 02/23/13 6:30:00, Stop date: 02/23/13 6:30:00(Same as: Mononine) Mononine 3,000 unit, Route: IVP, 02/23/2013 02/23/2013 Deleted Drug form: INJ, Q12H, Dosing Weight 76.364, kg, Start date: 02/23/13 9:00:00, Duration: 30 day, Stop date: 03/24/13 21:00:00 normal saline 0.9% IV 1,000 mL, Rate: 100 02/19/2013 02/24/2013 Discontinued 1,000 mL ml/hr, Infuse over: 10 hr, Route: IV, Dosing Weight 76.364 kg, Total Volume: 1,000, Start date: 02/19/13 18:18:00, Duration: 30 day, Stop date: 03/21/13 18:17:00 Zosyn 3.375 gm, Route: IVPB, 02/19/2013 02/19/2013 Discontinued Drug form: PDR/INJ, ABXQ6H, Dosing Weight 76.364, kg, Start date: 02/19/13 19:00:00, Duration: 30 day, Stop date: 03/21/13 13:00:00(Same as: Zosyn) Dosing based on Piperacillin component Zosyn 3.375 gm, Route: IVPB, 02/20/2013 02/24/2013 Discontinued Drug form: PDR/INJ, ABXQ6H, Dosing Weight 76.364, kg, Start date: 02/20/13 2:30:00, Duration: 30 day, Stop date: 03/21/13 20:30:00(Same as: Zosyn) Dosing based on Piperacillin component potassium chloride 20 40 mEq, 30 mL, Route: PO, 02/21/2013 02/21/2013 Completed mEq/15 mL oral liquid Drug form: LIQ, ONCE, Dosing Weight 76.364, kg, Start date: 02/21/13 7:21:00, Stop date: 02/21/13 7:21:00(Same as: Potassium Chloride) levothyroxine 40 microgram, 1.6 mL, 02/20/2013 02/20/2013 Discontinued Route: PO, Drug form: SUSP, Q630AM, Dosing Weight 76.364, kg, Start date: 02/20/13 8:23:00, Duration: 30 day, Stop date: 03/22/13 6:30:00Enteral feeds may interefere with the absorption of this medication. Take 1 hour before or 2 hours after meal; Refrigerate - Shake Well (Same as: Synthroid) Compounded Product - formulation not commercially available multivitamin 1 tab, PO, Daily, 0 02/19/2013 Ordered Refill(s) CeleBREX 200 mg oral 200 mg=1 cap, PO, PRN, # 02/19/2013 Ordered capsule 30 cap, 0 Refill(s) magnesium sulfate 2 gm, 50 mL, Route: IVPB, 02/21/2013 02/21/2013 Completed Drug form: INJ, Q2H, Dosing Weight 76.364, kg, Total dose=4 gm, Start date: 02/21/13 8:00:00, Duration: 2 doses or times, Stop date: 02/21/13 10:00:00 acetaminophen 650 mg, 20.3 mL, Route: 02/19/2013 02/24/2013 Discontinued PO, Drug form: LIQ, Q4H, Dosing Weight 76.364, kg, PRN Pain 1-3/Temp > 100.4 F, Start date: 02/19/13 20:39:00, Duration: 30 day, Stop date: 03/21/13 20:38:00Max snlfacrwfkuys=[id number]/day (4 gm/day). (Same as: Tylenol) Flomax 0.4 mg, PO, Daily, 0 02/19/2013 Ordered Refill(s) CeleBREX 200 mg, 2 cap, Route: PO, 02/21/2013 02/24/2013 Discontinued Drug form: CAP, Daily, Dosing Weight 76.364, kg, PRN Other -See Comment, Start date: 02/21/13 8:54:00, Duration: 30 day, Stop date: 03/23/13 8:53:00, joint painNSAID. Please check indication. Not for seizure. (Same As: CeleBREX) Vital Signs Most recent to oldest 1 2 3 [Reference Range]: Height 182.88 cm (02/19/2013 19:09:00) Temperature Oral 98.8 DegF 98.1 DegF 98.4 DegF [96.4-99.1 DegF] (02/24/2013 10:39:00) (02/24/2013 08:57:00) (02/24/2013 05: 26:00) Systolic Blood Pressure 162 mmHg 155 mmHg 122 mmHg [90-140 mmHg] *HI* *HI* (02/24/2013 05:26:00) (02/24/2013 10:39:00) (02/24/2013 08:57:00) Diastolic Blood Pressure 77 mmHg 82 mmHg 64 mmHg [60-90 mmHg] (02/24/2013 10:39:00) (02/24/2013 08:57:00) (02/24/2013 05:26: 00) Respiratory Rate [14-20 16 BRMIN 16 BRMIN 16 BRMIN BRMIN] (02/24/2013 10:39:00) (02/24/2013 08:57:00) (02/24/2013 05:26:00) Peripheral Pulse Rate 63 bpm 66 bpm 60 bpm [60-100 bpm] (02/24/2013 10:39:00) (02/24/2013 08:57:00) (02/24/2013 05:26: 00) Weight 76.364 kg 76.364 kg (02/19/2013 19:09:00) (02/19/2013 09:51:00) Results URINALYSIS Most recent to oldest [Reference Range]: 1 2 3 UA Turbidity [Clear] Clear (02/19/2013 11:45:20) UA Color [Yellow] Yellow *NA* (02/19/2013 11:45:20) UA pH [5.0-8.0] 6.5 (02/19/2013 11:45:20) UA Spec Grav [<=1.030] 1.010 (02/19/2013 11:45:20) UA Glucose [Negative] Negative (02/19/2013 11:45:20) UA Blood [Negative] Negative (02/19/2013 11:45:20) UA Ketones [Negative] Trace *ABN* (02/19/2013 11:45:20) UA Protein [Negative mg/dL] 30 mg/dL *ABN* (02/19/2013 11:45:20) UA Urobilinogen [0.1-1.0 EU/dL] 4.0 EU/dL *HI* (02/19/2013 11:45:20) UA Bili [Negative] Moderate 1 *ABN* (02/19/2013 11:45:20) UA Leuk Est [Negative] Negative (02/19/2013 11:45:20) UA Nitrite [Negative] Negative (02/19/2013 11:45:20) UA WBC [None Seen] None Seen (02/19/2013 11:45:20) UA RBC [0-2] None Seen (02/19/2013 11:45:20) UA Bacteria [None Seen] None Seen (02/19/2013 11:45:20) UA Sq Epi [Few /LPF] Occasional /LPF (02/19/2013 11:45:20) Micro? Performed (02/19/2013 11:45:20) 1Result Comment: Interpret positive bilirubin results with caution. Confirmatory testing not possible due to the unavailability of reagent. Correlation with serum chemistry results recommended.BLOOD BANK RESULTS Most recent to oldest [Reference Range]: 1 2 3 ABO/Rh B POS *Unknown* (02/19/2013 11:45:00) Antibody Scrn Negative (02/19/2013 11:45:00) CHEMISTRY Most recent to oldest 1 2 3 [Reference Range]: Sodium Lvl [135-145 mEq/L] 141 mEq/L 141 mEq/L 142 mEq/L (02/24/2013 04:11:00) (02/23/2013 02:29:00) (02/22/2013 04:30:00) Potassium Lvl [3.5-5.1 3.7 mEq/L 3.5 mEq/L 3.7 mEq/L mEq/L] (02/24/2013 04:11:00) (02/23/2013 02:29:00) (02/22/2013 04:30:00) Chloride Lvl [95-109 mEq/L] 105 mEq/L 106 mEq/L 108 mEq/L (02/24/2013 04:11:00) (02/23/2013 02:29:00) (02/22/2013 04:30:00) CO2 [24-32 mEq/L] 28 mEq/L 23 mEq/L 24 mEq/L (02/24/2013 04:11:00) *LOW* (02/22/2013 04:30:00) (02/23/2013 02:29:00) AGAP [10.0-20.0 mEq/L] 11.7 mEq/L 15.5 mEq/L 13.7 mEq/L (02/24/2013 04:11:00) (02/23/2013 02:29:00) (02/22/2013 04:30:00) Creatinine Lvl [0.5-1.4 0.9 mg/dL 1.0 mg/dL 1.0 mg/dL mg/dL] (02/24/2013 04:11:00) (02/23/2013 02:29:00) (02/22/2013 04:30:00) eGFR 90 mL/min/1.73m2 2 79 mL/min/1.73m2 3 79 mL/min/1.73m2 4 *NA* *NA* *NA* (02/24/2013 04:11:00) (02/23/2013 02:29:00) (02/22/2013 04:30:00) BUN [7-22 mg/dL] 10 mg/dL 13 mg/dL 15 mg/dL (02/24/2013 04:11:00) (02/23/2013 02:29:00) (02/22/2013 04:30:00) B/C Ratio [6-25] 13 15 16 (02/23/2013 02:29:00) (02/22/2013 04:30:00) (02/21/2013 03:02:00) Glucose Lvl [70-99 mg/dL] 106 mg/dL 5 114 mg/dL 6 91 mg/dL 7 *HI* *HI* (02/22/2013 04:30:00) (02/24/2013 04:11:00) (02/23/2013 02:29:00) Total Protein [6.4-8.4 6.7 g/dL 6.7 g/dL 6.3 g/dL g/dL] (02/23/2013 02:29:00) (02/22/2013 04:30:00) *LOW* (02/21/2013 03:02:00) Albumin Lvl [3.5-5.0 g/dL] 3.3 g/dL 3.4 g/dL 3.1 g/dL *LOW* *LOW* *LOW* (02/23/2013 02:29:00) (02/22/2013 04:30:00) (02/21/2013 03:02:00) Globulin [2.0-4.0 g/dL] 3.4 g/dL 3.3 g/dL 3.2 g/dL (02/23/2013 02:29:00) (02/22/2013 04:30:00) (02/21/2013 03:02:00) A/G Ratio [0.7-1.6] 1.0 1.0 1.0 (02/23/2013 02:29:00) (02/22/2013 04:30:00) (02/21/2013 03:02:00) Calcium Lvl [8.5-10.5 8.6 mg/dL 8.5 mg/dL 8.5 mg/dL mg/dL] (02/24/2013 04:11:00) (02/23/2013 02:29:00) (02/22/2013 04:30:00) Phosphorus [2.5-4.5 mg/dL] 2.4 mg/dL 3.2 mg/dL 3.5 mg/dL *LOW* (02/23/2013 02:29:00) (02/22/2013 04:30:00) (02/24/2013 04:11:00) Magnesium Lvl [1.8-2.4 1.8 mg/dL 1.8 mg/dL 2.0 mg/dL mg/dL] (02/24/2013 04:11:00) (02/23/2013 02:29:00) (02/22/2013 04:30:00) ALT [0-65 unit/L] 240 unit/L 142 unit/L 135 unit/L *HI* *HI* *HI* (02/23/2013 02:29:00) (02/22/2013 04:30:00) (02/21/2013 03:02:00) AST [0-37 unit/L] 161 unit/L 71 unit/L 56 unit/L *HI* *HI* *HI* (02/23/2013 02:29:00) (02/22/2013 04:30:00) (02/21/2013 03:02:00) Alk Phos [39-136 unit/L] 119 unit/L 118 unit/L 119 unit/L (02/23/2013 02:29:00) (02/22/2013 04:30:00) (02/21/2013 03:02:00) Bili Total [0.2-1.3 mg/dL] 1.5 mg/dL 1.6 mg/dL 1.8 mg/dL *HI* *HI* *HI* (02/23/2013 02:29:00) (02/22/2013 04:30:00) (02/21/2013 03:02:00) Lipase Lvl [73-393 unit/L] 202 unit/L (02/19/2013 11:45:00) 2Result Comment: The eGFR is calculated using the CKD-EPI formula. In most young , healthy individualsthe eGFR will be >90 mL/min/1.73m2. The eGFR declines with age. An eGFR of 60-89 may be normal in some populations, particularly the elderly, for whom the CKD-EPI formula has not been extensively validated. Use of the eGFR is not recommended in the following populations: Individuals with unstable creatinine concentrations, including patients and those with serious co-morbid conditions. Patients with extremes in muscle mass or diet. The data above are obtained from the National Kidney Disease Education Program ( NKDEP) which additionally recommends that when the eGFR is used in patients with extremes of body mass index for purposesof drug dosing, the eGFR should be multiplied by the estimated BMI.3Result Comment: The eGFR is calculated using the CKD-EPI formula. In most young, healthy individualsthe eGFR will be >90 mL/ min/1.73m2. The eGFR declines with age. An eGFR of 60-89 may be normal in some populations, particularly the elderly, for whom the CKD-EPI formula has not been extensively validated. Use of the eGFR is not recommended in the following populations: Individuals with unstable creatinine concentrations, including patients and those with serious co-morbid conditions. Patients with extremes in muscle mass or diet. The data above are obtained from the National Kid[employer] Disease Education Program ( NKDEP) which additionally recommends that when the eGFR is used in patients with extremes of body mass index for purposesof drug dosing, the eGFR should be multiplied by the estimated BMI.4Result Comment: The eGFR is calculated using the CKD-EPI formula. In most young, healthy individualsthe eGFR will be >90 mL/ min/1.73m2. The eGFR declines with age. An eGFR of 60-89 may be normal in some populations, particularly the elderly, for whom the CKD-EPI formula has not been extensively validated. Use of the eGFR is not recommended in the following populations: Individuals with unstable creatinine concentrations, including patients and those with serious co-morbid conditions. Patients with extremes in muscle mass or diet. The data above are obtained from the National Kid[employer] Disease Education Program ( NKDEP) which additionally recommends that when the eGFR is used in patients with extremes of body mass index for purposesof drug dosing, the eGFR should be multiplied by the estimated BMI.5Interpretive Data: Adult reference range values reflect the clinical guidelines of the [place] [employer].6Interpretive Data: Adult reference range values reflect the clinical guidelines of the [place] [employer].7Interpretive Data: Adult reference range values reflect the clinical guidelines of the [place] [employer].HEMATOLOGY Most recent to oldest 1 2 3 [Reference Range]: WBC [3.7-10.4 K/CMM] 13.8 K/CMM 8.1 K/CMM 5.0 K/CMM *HI* (02/23/2013 02:29:00) (02/22/2013 04:30:00) (02/24/2013 04:11:00) RBC [4.70-6.10 M/CMM] 4.63 M/CMM 4.54 M/CMM 4.79 M/CMM *LOW* *LOW* (02/22/2013 04:30:00) (02/24/2013 04:11:00) (02/23/2013 02:29:00) Hgb [14.0-18.0 g/dL] 13.3 g/dL 13.5 g/dL 13.8 g/dL *LOW* *LOW* *LOW* (02/24/2013 04:11:00) (02/23/2013 02:29:00) (02/22/2013 04:30:00) Hct [42.0-54.0 %] 39.6 % 38.7 % 41.2 % *LOW* *LOW* *LOW* (02/24/2013 04:11:00) (02/23/2013 02:29:00) (02/22/2013 04:30:00) MCV [80.0-94.0 fL] 85.5 fL 85.3 fL 85.9 fL (02/24/2013 04:11:00) (02/23/2013 02:29:00) (02/22/2013 04:30:00) MCH [27.0-31.0 pg] 28.7 pg 29.7 pg 28.8 pg (02/24/2013 04:11:00) (02/23/2013 02:29:00) (02/22/2013 04:30:00) MCHC [32.0-36.0 g/dL] 33.6 g/dL 34.8 g/dL 33.5 g/dL (02/24/2013 04:11:00) (02/23/2013 02:29:00) (02/22/2013 04:30:00) RDW [11.5-14.5 %] 13.1 % 13.5 % 13.4 % (02/24/2013 04:11:00) (02/23/2013 02:29:00) (02/22/2013 04:30:00) Platelet [133-450 K/CMM] 171 K/CMM 188 K/CMM 168 K/CMM (02/24/2013 04:11:00) (02/23/2013 02:29:00) (02/22/2013 04:30:00) MPV [7.4-10.4 fL] 9.0 fL 8.9 fL 9.1 fL (02/24/2013 04:11:00) (02/23/2013 02:29:00) (02/22/2013 04:30:00) Segs [45.0-75.0 %] 84.4 % 73.7 % 59.4 % *HI* (02/23/2013 02:29:00) (02/22/2013 04:30:00) (02/24/2013 04:11:00) Lymphocytes [20.0-40.0 %] 8.2 % 14.8 % 21.7 % *LOW* *LOW* (02/22/2013 04:30:00) (02/24/2013 04:11:00) (02/23/2013 02:29:00) Monocytes [2.0-12.0 %] 7.0 % 9.6 % 10.7 % (02/24/2013 04:11:00) (02/23/2013 02:29:00) (02/22/2013 04:30:00) Eosinophils [0.0-4.0 %] 0.2 % 1.5 % 7.6 % (02/24/2013 04:11:00) (02/23/2013 02:29:00) *HI* (02/22/2013 04:30:00) Basophils [0.0-1.0 %] 0.2 % 0.4 % 0.6 % (02/24/2013 04:11:00) (02/23/2013 02:29:00) (02/22/2013 04:30:00) Segs-Bands # [1.5-8.1 11.7 K/CMM 5.9 K/CMM 3.0 K/CMM K/CMM] *HI* (02/23/2013 02:29:00) (02/22/2013 04:30:00) (02/24/2013 04:11:00) Lymphocytes # [1.0-5.5 1.1 K/CMM 1.2 K/CMM 1.1 K/CMM K/CMM] (02/24/2013 04:11:00) (02/23/2013 02:29:00) (02/22/2013 04:30:00) Monocytes # [0.0-0.8 1.0 K/CMM 0.8 K/CMM 0.5 K/CMM K/CMM] *HI* (02/23/2013 02:29:00) (02/22/2013 04:30:00) (02/24/2013 04:11:00) Eosinophils # [0.0-0.5 0.1 K/CMM 0.4 K/CMM 0.3 K/CMM K/CMM] (02/23/2013 02:29:00) (02/22/2013 04:30:00) (02/21/2013 03:02:00) Basophils # [0.0-0.2 0.1 K/CMM K/CMM] (02/19/2013 11:45:00) RBC Morph Normal Normal (02/20/2013 05:17:00) (02/19/2013 11:45:00) Plt Morph Normal (02/20/2013 05:17:00) Large Plt [None Seen] Slight *ABN* (02/19/2013 11:45:00) Microbiology Reports PROCEDURE:Culture: Blood STATUS: Auth (Verified) BODY SITE: Right Hand COLLECTED DATE/TIME: 02/20/2013 10:50:35 SOURCE: Blood FREE TEXT SOURCE: set 2 of 2-r hand FINAL REPORTS Final ReportNo Growth At 5 DaysPRELIMINARY REPORTS* Preliminary ReportNo Growth At 3 Days Preliminary ReportNo Growth At 2 Days Preliminary ReportNo Growth At 5 Days Preliminary ReportNo Growth At 4 Days Preliminary ReportNo Growth At 1 Day PROCEDURE:Culture: Blood STATUS: Auth (Verified) BODY SITE: Left Hand COLLECTED DATE/TIME: 02/20/2013 10:50:30 SOURCE: Blood FREE TEXT SOURCE: st 1 of 2-l hand FINAL REPORTS Final ReportNo Growth At 5 DaysPRELIMINARY REPORTS* Preliminary ReportNo Growth At 2 Days Preliminary ReportNo Growth At 1 Day Preliminary ReportNo Growth At 5 Days Preliminary ReportNo Growth At 3 Days Preliminary ReportNo Growth At 4 Days Procedures Procedures Date Related Diagnosis Knee replacement
--- OUTSIDE RECORDS SUMMARY | 2018-04-06 08:15 | XMS REPORT | CCD ---
:1950 Author Organization [facility] [place] Care Team Providers Name Role Phone Bulmaro Hahn Consulting Provider Allergies, Adverse Reactions, Alerts Substance Reaction Status Medrol Dizziness Active Alt Hot & Cold Problem List Condition Effective Dates Status Hemophilia Resolved Hepatitis C Resolved HTN - Hypertension Resolved Pain Active
[2018-04-06] MEDS ORDERED: CYCLOPENTOLATE 1% OPTH 2 ML ONE (08:36)
[2018-04-06] MEDS ORDERED: NA CHLORIDE 0.9% 500 ML ONE (08:36)
[2018-04-06] MEDS ORDERED: PHENYLEPHRINE 10% OPTH 5ML ONE (08:36)
[2018-04-06] MEDS ORDERED: BALANCED SALT IRRIG PLAIN 500 ML BTL IRR ONE (08:37)
[2018-04-06] MEDS ORDERED: NS 0.9% VIAL 10 ML ONE (08:37)
[2018-04-06] MEDS ORDERED: EPINEPHRINE/PF 1 MG/ML AMP ONE (08:37)
[2018-04-06] MEDS ORDERED: DUOVISC 1 KIT OPTH ONE (08:38)
[2018-04-06] MEDS ORDERED: MOXIFLOXACIN HCL 10 DROPS/ML **OR USE OPTH ONE (08:38)
[2018-04-06] MEDS ORDERED: CYCLOPENTOLATE 1% OPTH 2 ML OPTH ONE ×2 (08:48→08:58)
[2018-04-06] MEDS ORDERED: PHENYLEPHRINE 10% OPTH 5ML OPTH ONE ×2 (08:48→08:58)
[2018-04-06] MEDS: TETRACAINE HCL 0.5% 2ML OPTH ONE ×2 (09:48→10:13)
[2018-04-06] MEDS: BUPIVACAINE 0.25% PF 10 ML VIAL ONE ×2 (09:49→10:14)
[2018-04-06] MEDS: LIDOCAINE 2% MPF 5 ML VIAL ONE ×2 (09:49→10:14)
[2018-04-06] MEDS ORDERED: PROPOFOL 200 MG/20 ML VIAL IV ONE (10:22)
[2018-04-06] MEDS ORDERED: LIDOCAINE 1% MPF 5 ML VIAL ONE (10:22)
--- NOTE | 2018-04-06 11:05 | P.BOP ---
Preoperative diagnosis: Nuclear sclerotic and posterior subcapsular cataract OD Postoperative diagnosis: Same Primary procedure: Phacoemulsification with IOL OD Estimated blood loss: None Anesthesia: Local (Subtenon's infusion with anesthesia for cataract surgery) Complications: None Implants: SA60WF +19.0 Transferred to: Other (Day surgery) Condition: Good
--- NOTE | 2018-04-06 21:47 | OP ---
Date of Procedure: 04/06/2018 Surgeon: Nancy Melo MD Anesthesiologist: Segundo Caba CRNA, and Hugh Infante M.D. Preoperative Diagnosis: Nuclear sclerotic and posterior subcapsular cataract, OD (right eye). Operation Performed: Phacoemulsification with intraocular lens implant, right eye. Anesthesia: Per cataract surgery. Complications: None. Description Of Procedure: In day surgery, the patient was prepped with Betadine and draped. A conjunctival incision was made in the inferior nasal quadrant with Yusra scissors. A sub-Tenon block consisting of a 1:1 mixture of 2% Xylocaine and 0.25% bupivacaine was placed through the conjunctival incision with a blunt cannula. A Hon[place] balloon was placed over the eye and the patient was transferred to the operating room. In the operating room the patient was prepped and draped in the usual sterile fashion for ophthalmic surgery. A lid speculum was placed in the right eye. Two paracentesis sites were made superiorly and inferiorly in the limbal cornea. Viscoat was placed in the anterior chamber and a crescent blade was used to make a corneal groove and tunnel, and a keratome was used to enter the anterior chamber. Provisc was placed in the anterior chamber and a 360 degree capsulotomy was performed with a cystitome. The lens was hydrodissected with BSS and rotated freely. The lens was removed with a stop and chop technique. 10.58 phaco CDE was used to remove the lens. Residual cortex was removed with the irrigation and aspiration. Provisc was placed in the capsular bag. An SA60WF +19.0 lens was placed in the capsular bag without complications. Irrigation and aspiration was used to remove residual viscoelastic. The paracentesis sites were hydrated with BSS. The wound and paracentesis sites were inspected and found to be watertight. Vigamox 0.07 cc was placed intracamerally at the end of the procedure. The eye was irrigated with balanced salt solution. The eye was patched with a soft cotton patch and Kunz metal shield. The patient was returned to day surgery in good condition. Comments: The patient self-infused mono nine, 30 minutes prior to the surgery. Cautery was used for hemostasis at the beginning of the procedure in the area of conjunctival incision used for subtenon's infusion. 1:5000 epi was placed in the anterior chamber prior to Viscoat. Discharge Instructions: Mr. Levin is discharged to home in good condition and is to follow up with Dr. Melo in the morning. CASSI/LISBETH Voice ID: [id number] Report ID: [id number]
== END 2018-04-06 11:32 | disposition home or self-care (01) ==
LOC: OR 08:09
PROVIDERS: ATTEND Ophthalmology Retina Specialist
PROC: 08RJ3JZ Replacement of Right Lens with Synthetic Substitute, Percutaneous Approach (ICD-10-PCS; principal; 2018-04-06 09:30)
DX: H25.11 Age-related nuclear cataract, right eye (principal); H25.041 Posterior subcapsular polar age-related cataract, right eye; H04.123 Dry eye syndrome of bilateral lacrimal glands; I10 Essential (primary) hypertension; M19.90 Unspecified osteoarthritis, unspecified site; Z88.8 Allergy status to other drugs, medicaments and biological substances; Z86.19 Personal history of other infectious and parasitic diseases; Z83.511 Family history of glaucoma; Z82.49 Family history of ischemic heart disease and other diseases of the circulatory system
CPT/HCPCS: J0171; J2704